=== PATIENT | female | born 1985 | race Caucasian/White ===

== ENCOUNTER 2016-11-23 21:13 | Inpatient (IN) | payer OTHER ==
[2016-11-23] MEDS ORDERED: Nalbuphine* 20 MG/ML 1 ML VIAL IV ONE (23:50)
[2016-11-23] MEDS ORDERED: Promethazine INJ(RESTRICTED)* 25 MG/ML 1 ML VIAL IV ONE (23:50)
[2016-11-23] MEDS ORDERED: LR IV ONE (23:50)
[2016-11-24] MEDS ORDERED: Nalbuphine* 20 MG/ML 1 ML VIAL ONE (00:23)
[2016-11-24] MEDS ORDERED: Promethazine INJ(RESTRICTED)* 25 MG/ML 1 ML VIAL ONE (00:24)
[2016-11-24] MEDS ORDERED: Lidocaine 1% MPF* 2 ML VIAL ONE (00:52)
[2016-11-24] MEDS ORDERED: OBEPIDURAL* 250 ML ONE (03:55)
[2016-11-24 04:28] LABS: Hematocrit 36 % (35-47); Hemoglobin 11.7 g/dl (12.0-16.0); Mean Corpuscular HGB Conc 33 g/dl (31-36); Mean Corpuscular Hemoglobin 27 pg (27-31); Mean Corpuscular Volume 82 fL (80-97); Mean Platelet Volume 10 um3 (7.4-10.4); Red Blood Count 4.37 10^6/ul (4.0-5.4); Red Cell Distribution Width 15 % (10.5-15); White Blood Count 12.1 10^3/ul (3.5-10.8)
[2016-11-24] MEDS ORDERED: EPHEDrine (Pressors)* 50 MG/ML VIAL IV PUSH PRN ×2 (05:34)
[2016-11-24] MEDS ORDERED: Phenylephrine IV* 40 MCG/ML 10 ML SYRINGE IV PUSH PRN ×2 (05:34)
[2016-11-24] MEDS ORDERED: ceFOXitin 2 GM IVPREMIX* 2 GM/50 ML BAG IVPB ONE (15:24)
[2016-11-24] MEDS ORDERED: Sodium Citrate/Citric Acid* 15 ML UDC PO ONE (15:26)
[2016-11-24] MEDS ORDERED: ceFOXitin 2 GM IVPREMIX* 2 GM/50 ML BAG ONE (15:31)
[2016-11-24] MEDS ORDERED: Morphine PF AMP (0.5MG/ML)* 5 MG/10 ML AMP ONE (15:36)
[2016-11-24] MEDS ORDERED: Ondansetron INJ* 2 MG/ML VIAL ONE (15:39)
[2016-11-24] MEDS ORDERED: OXYTOCIN* 10 UNITS/ML 1 ML VIAL ONE ×2 (15:39→16:24)
[2016-11-24] MEDS ORDERED: Dexamethasone IV* 4 MG/ML 1 ML (4 MG) ONE (15:39)
[2016-11-24] MEDS ORDERED: Lidocaine 2% EPI 1:200000 MPF* 20 ML VIAL ONE (15:41)
[2016-11-24] MEDS ORDERED: Sodium Bicarbonate 8.4% SYR* 10 ML SYRINGE ONE (15:41)
[2016-11-24] MEDS ORDERED: Phenylephrine IV* 40 MCG/ML 10 ML SYRINGE ONE (16:07)
[2016-11-24] MEDS ORDERED: Ketorolac INJ* 30 MG/ML 1 ML VIAL IV PRN (16:15)
[2016-11-24] MEDS ORDERED: Ondansetron INJ* 2 MG/ML VIAL IV PRN (16:15)
[2016-11-24] MEDS ORDERED: DiMENhydriNATE IV* 50 MG/ML VIAL IV PUSH PRN (16:15)
[2016-11-24] MEDS ORDERED: Nalbuphine* 20 MG/ML 1 ML VIAL IV PRN ×2 (16:15)
[2016-11-24] MEDS ORDERED: oxyCODONE/Acetamin 5/325 MG* TAB PO PRN ×2 (16:15)
[2016-11-24] MEDS ORDERED: Naloxone* 0.4 MG/ML 1 ML VIAL IV PRN (16:15)
[2016-11-24] MEDS ORDERED: Dibucaine 1% 28.35 GM TUBE PR PRN (17:10)
[2016-11-24] MEDS ORDERED: Acetaminophen TAB* 325 MG PO PRN (17:10)
[2016-11-24] MEDS ORDERED: Witch Hazel PAD* JAR TOPICAL PRN (17:10)
[2016-11-24] MEDS ORDERED: Glycerin ADULT SUPP PR PRN (17:10)
[2016-11-24] MEDS ORDERED: Measles, Mumps,Rubella VACC* 0.5 ML/VIAL SUBCUT ONE (17:10)
[2016-11-24] MEDS ORDERED: Oxytocin in LR* 20 UNITS/1,000 ML BAG IVPB ONE (17:36)
[2016-11-24] MEDS ORDERED: Oxytocin in LR* 20 UNITS/1,000 ML BAG IVPB SCH (18:00)
[2016-11-24] MEDS: Simethicone CHEW TAB* 80 MG PO SCH ×2 (18:15→21:55)
[2016-11-24] MEDS: Ibuprofen TAB* 600 MG PO SCH (18:15)
[2016-11-24] MEDS: Docusate CAP* 100 MG PO SCH (21:55)
[2016-11-25] MEDS: oxyCODONE/Acetamin 5/325 MG* TAB PO PRN ×4 (02:11→22:13)
[2016-11-25] MEDS: Ibuprofen TAB* 600 MG PO SCH ×3 (02:12→08:44)
[2016-11-25 06:29] LABS: Hematocrit 30 % (35-47); Hemoglobin 9.9 g/dl (12.0-16.0); Mean Corpuscular HGB Conc 33 g/dl (31-36); Mean Corpuscular Hemoglobin 27 pg (27-31); Mean Corpuscular Volume 82 fL (80-97); Mean Platelet Volume 9 um3 (7.4-10.4); Red Blood Count 3.67 10^6/ul (4.0-5.4); Red Cell Distribution Width 14 % (10.5-15); White Blood Count 22.3 10^3/ul (3.5-10.8)
[2016-11-25 06:42] LABS: Comments Flag Yes
[2016-11-25 06:43] LABS: Add Diff/Slide Review? Slide Review Added
[2016-11-25] MEDS: Docusate CAP* 100 MG PO SCH ×3 (08:14→22:13)
[2016-11-25] MEDS: Simethicone CHEW TAB* 80 MG PO SCH ×4 (08:15→22:12)
[2016-11-25] MEDS: Ferrous Gluconate TAB* 324 MG TAB PO SCH ×2 (08:15→22:12)
[2016-11-25] MEDS: OBEPIDURAL* 250 ML EPIDURAL SCH (08:41)
--- NOTE | 2016-11-25 10:31 | OP ---
DATE OF OPERATION: 11/24/16 - ROOM #115 DATE OF : 87 SURGEON: Guerrero Capellan MD OUTSOLE SCHEDULER: Jayro Blandon MD SECOND OUTSOLE SCHEDULER: Hollie Regan CNM ANESTHESIOLOGIST: Dr. Nixon. ANESTHESIA: Epidural anesthesia. PRE-OP DIAGNOSIS: Full-term intrauterine , arrest of descent at fully dilated. POST-OP DIAGNOSIS: Full-term intrauterine , arrest of descent at fully dilated. OPERATIVE PROCEDURE: Primary low-flap transverse section via Pfannenstiel. Uterus was closed in two layers. ESTIMATED BLOOD LOSS: 600 cc. URINE OUTPUT: 300 cc blood-tinged urine. FINDINGS: Viable male infant in the vertex presentation. 's were 9 and 9. Clear amniotic fluid. Baby's weight was 9 pounds 8 ounces. Normal-appearing uterus, normal-appearing ovaries, and fallopian tubes bilaterally. COMPLICATIONS: None. COUNTS: Sponge, lap, and needle count were correct x2. CONDITION: The patient was brought to recovery room, awake and in stable condition. DESCRIPTION OF PROCEDURE: The patient was brought to the operating room. When epidural anesthesia was found to be adequate, the patient was prepped and draped in the usual sterile fashion in the dorsal supine position with a left- rivera tilt. A Palm had been placed in labor under sterile conditions. Time- out was performed. The epidural was tested with the Allis clamps and found to be adequate. A Pfannenstiel skin incision was made approximately 2 cm above the symphysis pubis. This was carried down to the underlying layer of fascia. The fascia was incised in the midline and the fascial incision was extended laterally. The fascia was grasped with the Lucas clamps and the rectus muscle was dissected using sharp and blunt dissection. The rectus muscle was found to be in the midline. The peritoneum was identified, tented up and entered bluntly. The peritoneal incision was extended bluntly. The bladder blade was inserted. The vesicouterine peritoneum was identified and the bladder flap was created. The bladder blade was reinserted. A low flap transverse incision was made on the uterus to the level of the membranes. The uterine incision was extended laterally bluntly. The infant was delivered atraumatically from the vertex presentation. The cord was milked, the cord was clamped and cut, and the infant was handed off to the waiting chemic mangler, Dr. Chatman. 's were 9 and 9, weight was 9 pounds 8 ounces. The placenta was delivered. The uterus was exteriorized. The uterus was cleared of all clots and debris and the uterine incision was repaired using 0 Vicryl in a running locked fashion. A second layer of the same suture was used to imbricate and obtain excellent hemostasis. The abdomen and pelvis were copiously irrigated with warm normal saline. The ovaries and fallopian tubes were examined and found to be normal. The uterine incision was again examined and found to be hemostatic. The uterus was returned to the pelvis, the gutters were cleared of all clots and debris, and once again the uterine incision was examined and found to be hemostatic. The peritoneum was closed using 3-0 Vicryl. The subfascial layer was examined and found to be hemostatic. The fascia was closed using 0 Vicryl. The subcutaneous tissue was irrigated, any small bleeders were cauterized with the Bovie, and the skin was closed with 4-0 Monocryl in a subcuticular fashion. Steri- Strips were applied. A pressure dressing was applied. The patient was brought to the recovery room, awake and in stable condition. [id number]/[facility] #: [id number] MAURY
--- NOTE | 2016-11-25 11:09 | PTEDU ---
Patient Name: JAKE SOMMER SOMMERJAKE selected video: Follow Me Mum: [facility] [employer] to Successful to view on 11/25/2016 at 11:08:55 AM [id number]
[2016-11-25] MEDS ORDERED: Ibuprofen TAB* 600 MG ONE (16:08)
[2016-11-25] MEDS: Ibuprofen TAB* 600 MG PO PRN (22:13)
[2016-11-26] MEDS: oxyCODONE/Acetamin 5/325 MG* TAB PO PRN ×4 (02:01→17:59)
[2016-11-26] MEDS: Ibuprofen TAB* 600 MG PO PRN ×3 (06:32→17:59)
[2016-11-26] MEDS: Simethicone CHEW TAB* 80 MG PO SCH ×4 (09:20→20:52)
[2016-11-26] MEDS: Docusate CAP* 100 MG PO SCH ×3 (09:20→20:52)
[2016-11-26] MEDS: Ferrous Gluconate TAB* 324 MG TAB PO SCH ×2 (09:20→20:51)
[2016-11-26 20:53] VITALS: BP 124/66
[2016-11-27] MEDS: oxyCODONE/Acetamin 5/325 MG* TAB PO PRN ×3 (01:38→12:17)
[2016-11-27] MEDS: Ibuprofen TAB* 600 MG PO PRN ×3 (01:38→14:03)
[2016-11-27] MEDS: Docusate CAP* 100 MG PO SCH ×2 (08:14→14:03)
[2016-11-27] MEDS: Ferrous Gluconate TAB* 324 MG TAB PO SCH (08:14)
[2016-11-27] MEDS: Simethicone CHEW TAB* 80 MG PO SCH ×2 (08:14→12:18)
== END 2016-11-27 14:49 | disposition home or self-care (01) | DRG 766 ==
LOC: MCHOBOUT 21:13 → MCHOB 11-24 03:47
PROVIDERS: ADMIT Obstetrics & Gynecology; ATTEND Obstetrics & Gynecology
PROC: 4A1HX4Z Monitoring of Products of Conception, Cardiac Electrical Activity, External Approach (ICD-10-PCS; 2016-11-24)
PROC: 10D00Z1 Extraction of Products of Conception, Low, Open Approach (ICD-10-PCS; principal; 2016-11-24 15:46)
DX: O48.0 Post-term pregnancy (principal); O90.81 Anemia of the puerperium; O32.4XX0 Maternal care for high head at term, not applicable or unspecified; Z3A.40 40 weeks gestation of pregnancy; Z37.0 Single live birth
CPT/HCPCS: 36415; 85025; 85027; 86850; 86900; 86901; 90707; A9270-GY; J0694; J1100; J2300; J2405; J2550; J2590